=== PATIENT | male | born 1970 | race American Indian/Alaskan Native ===

== ENCOUNTER 2018-03-26 11:27 | Emergency (ER) | payer OTHER ==
[2018-03-26 11:56] VITALS: BP 116/75; PULSE 74; RESP 18; TEMP 98.9; O2SAT 100
[2018-03-26] MEDS ORDERED: Tmp-Smz 800 mg-160 mg DS Tab PO STA (12:17)
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
[2018-03-26] MEDS ORDERED: Tmp-Smz 800 mg-160 mg DS Tab ONE (12:47)
== END 2018-03-26 12:58 | disposition home or self-care (01) ==
LOC: C.ER 11:27
DX: S01.00XS Unspecified open wound of scalp, sequela (principal); X58.XXXS Exposure to other specified factors, sequela